=== PATIENT | female | born 2000 | race Caucasian/White ===

== ENCOUNTER → 2024-05-15 15:06 | Outpatient (REF) | payer OTHER, SELFPAY | LOC: RAD 15:06 | PROVIDERS: ATTENDING PHYSICIAN Family Medicine | DX: E10.65 Type 1 diabetes mellitus with hyperglycemia (principal); R23.8 Other skin changes | CPT/HCPCS: 93970 ==

== ENCOUNTER 2025-04-24 20:22 | Emergency (ER) | payer OTHER, SELFPAY ==
[2025-04-24 20:22] VITALS: BMI 27.0
[2025-04-24 20:32] VITALS: BP 115/77
[2025-04-24 20:48] LABS: Hematocrit 38.6 % (37.0-47.0); Hemoglobin 12.4 g/dL (12.0-16.0); Mean Corp Hgb Conc. 32.1 g/dL (33.0-37.0); Mean Corpuscular Volume 80.6 fL (81.0-99.0); Nucleated Red Blood Cells % 0 %; Platelet Count 342 10^3/uL (130-400); Red Cell Dist. Width 13.9 % (11.5-14.5)
[2025-04-24 21:11] LABS: HCG, Serum Qualitative Screen Negative
[2025-04-24 21:13] LABS: ALT (SGPT) 17 U/L (0-35); AST (SGOT) 18 U/L (14-36); Albumin 3.9 g/dl (3.5-5.0); Alkaline Phosphatase 56 U/L (38-126); Blood Urea Nitrogen 14 mg/dl (7-17); Calcium 9.3 mg/dl (8.4-10.2); Carbon Dioxide 26 mmol/L (22-30); Chloride 106 mmol/L (98-107); Glucose 257 mg/dl (70-99); Potassium 4.3 mmol/L (3.5-5.1); Sodium 135 mmol/L (135-145); Total Protein 6.6 g/dl (6.3-8.2); Troponin I < 0.012 ng/ml; eGFR > 60.00
[2025-04-24 21:18] VITALS: BP 102/67
[2025-04-24 22:00] VITALS: BP 114/70
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
== END 2025-04-24 22:26 | disposition home or self-care (01) ==
LOC: EMR 20:22
PROVIDERS: Student in an Organized Health Care Education/Training Program; EMERGENCY PHYSICIAN Emergency Medicine; FAMILY PHYSICIAN Family Medicine
DX: T75.4XXA Electrocution, initial encounter (principal); W86.8XXA Exposure to other electric current, initial encounter; E10.9 Type 1 diabetes mellitus without complications; J45.909 Unspecified asthma, uncomplicated; K21.9 Gastro-esophageal reflux disease without esophagitis; F41.9 Anxiety disorder, unspecified; F32.A Depression, unspecified; K90.0 Celiac disease; K86.81 Exocrine pancreatic insufficiency; H91.92 Unspecified hearing loss, left ear; Z79.4 Long term (current) use of insulin; Z87.891 Personal history of nicotine dependence
CPT/HCPCS: 99284; 80053; 84484; 84703; 85025; 93005